=== PATIENT | female | born 1990 | race African-American/Black ===

== ENCOUNTER 2023-05-09 15:37 | Emergency (ER) | payer MEDICAID ==
[~2023-05-09] VITALS: Ht 180.3 cm; Wt 108.9 kg
[2023-05-09 17:00] VITALS: BP 121/50
[2023-05-09] MEDS ORDERED: KETOROLAC 30MG/ML VIAL IM ONE (17:00)
== END 2023-05-09 18:43 | disposition home or self-care (01) ==
LOC: ER 15:37
DX: S00.83XA Contusion of other part of head, initial encounter (principal); E03.9 Hypothyroidism, unspecified; W22.8XXA Striking against or struck by other objects, initial encounter; Y93.89 Activity, other specified; Y92.89 Other specified places as the place of occurrence of the external cause; Y99.8 Other external cause status
CPT/HCPCS: 99281

== ENCOUNTER 2024-03-19 03:22 | Emergency (ER) | payer MEDICAID ==
[~2024-03-19] VITALS: Ht 180.3 cm; Wt 76.6 kg
[2024-03-19 03:30] VITALS: TEMP 97.7; O2SAT 98
[2024-03-19 04:09] LABS: CLARITY URINE CLEAR (CLEAR); COLOR URINE YELLOW (YELLOW); GLUCOSE URINE NEGATIVE (NEGATIVE); KETONES URINE NEGATIVE (NEGATIVE); LEUKOCYTE ESTERASE URINE TRACE (NEGATIVE); NITRITE URINE NEGATIVE (NEGATIVE); OCCULT BLOOD URINE NEGATIVE (NEGATIVE); PH URINE 5.5 (4.5-8.0); PROTEIN URINE NEGATIVE (NEGATIVE); SPECIFIC GRAVITY URINE 1.026 (1.005-1.030)
[2024-03-19 04:18] LABS: BASOPHILS % 1.1 % (0.0-2.0); EOSINOPHILS % 0.4 % (0.0-5.0); HEMATOCRIT. 36.6 % (36.0-48.0); HEMOGLOBIN. 12.2 g/dL (12.0-16.0); LYMPHOCYTES % 24.6 % (20.0-50.0); MEAN CORPUSCULAR HEMOGLOBIN 31.3 pg (28.0-32.0); MEAN CORPUSCULAR HGB CONC 33.3 g/dL (31.0-37.0); MEAN CORPUSCULAR VOLUME 94.1 fL (81.0-99.0); MEAN PLATELET VOLUME 8.7 fl (7.4-10.4); NEUTROPHILS % 64.9 % (40.0-76.0); PLATELET 263 x1000/uL (130-400); RED BLOOD CELL COUNT 3.89 mill/uL (4.2-5.4); RED CELL DISTRIBUTION WIDTH 14.6 % (11.6-14.6); WHITE BLOOD COUNT 8.1 x1000/uL (4.5-11.0)
[2024-03-19 04:25] LABS: CARBON DIOXIDE 25 mEq/L (21-32); CHLORIDE 109 mEq/L (98-107); POTASSIUM 4.1 mEq/L (3.5-5.1); SODIUM 140 mEq/L (136-145)
[2024-03-19 04:26] LABS: BACTERIA URINE 1+; MUCUS URINE 2+ /lpf (< = 2+); RBC URINE 0-2 /hpf (0-2); SQUAMOUS EPITHELIAL CELL URINE 2+ /lpf (RARE/1+)
[2024-03-19 04:30] LABS: CREATININE 0.8 mg/dL (0.6-1.0)
[2024-03-19 04:31] LABS: GLUCOSE 116 mg/dL (70-105); UREA NITROGEN BLOOD 9 mg/dL (9-23)
[2024-03-19 04:32] LABS: ALANINE AMINOTRANSFERASE 13 IU/L (10-49); ASPARTATE AMINOTRANSFERASE 14 IU/L (<34)
[2024-03-19 04:33] LABS: ALBUMIN 4.4 g/dL (3.2-4.8); BILIRUBIN DIRECT 0.1 mg/dL (<=3.0); BILIRUBIN TOTAL 0.3 mg/dL (0.1-1.0); PROTEIN TOTAL 7.2 g/dL (6.0-8.3)
[2024-03-19 08:00] VITALS: BP 135/89; PULSE 95; RESP 18
[2024-03-19 09:18] LABS: UCG SCREEN NEGATIVE
[2024-03-19] MEDS ORDERED: IOHEXOL-300 100 ML BOTTLE ONE (10:30)
== END 2024-03-19 09:38 | disposition home or self-care (01) ==
LOC: ER 03:22
DX: R10.84 Generalized abdominal pain (principal)
CPT/HCPCS: 80076; 80048; 81003; 81025; 85025; 36415; 74177; 99285; Q9967; Z7610 ×2; C1893

== ENCOUNTER 2025-03-27 19:58 | Emergency (ER) | payer MEDICAID ==
[~2025-03-27] VITALS: Ht 177.8 cm; Wt 94.6 kg
[2025-03-27 20:17] VITALS: BP 118/62; RESP 16; TEMP 37.1; O2SAT 98
[2025-03-27 20:18] VITALS: PULSE 98; O2SAT 99
[2025-03-27 21:49] LABS: CLARITY URINE CLEAR (CLEAR); COLOR URINE YELLOW (YELLOW); GLUCOSE URINE NEGATIVE (NEGATIVE); KETONES URINE NEGATIVE (NEGATIVE); LEUKOCYTE ESTERASE URINE NEGATIVE (NEGATIVE); NITRITE URINE NEGATIVE (NEGATIVE); OCCULT BLOOD URINE NEGATIVE (NEGATIVE); PH URINE 5.5 (4.5-8.0); PROTEIN URINE NEGATIVE (NEGATIVE); SPECIFIC GRAVITY URINE 1.034 (1.005-1.030)
[2025-03-27] MEDS ORDERED: METR-167 MT (22:49)
[2025-03-27] MEDS ORDERED: FLUC200T MT (22:49)
[2025-03-27] MEDS: CEFTRIAXONE SODIUM 500MG VIAL IM ONE (23:10)
[2025-03-27] MEDS: AZITHROMYCIN 500 MG TABLET PO ONE (23:10)
== END 2025-03-27 23:11 | disposition home or self-care (01) ==
LOC: ER 19:58
DX: N76.0 Acute vaginitis (principal); Z79.899 Other long term (current) drug therapy
CPT/HCPCS: 99283; 87491; 87591; 81003; 81025; 96372; J0696